=== PATIENT | male | born 1990 | race Caucasian/White ===

== ENCOUNTER 2017-08-28 09:26 | Emergency (ER) | payer OTHER, MEDICARE ==
[~2017-08-28] VITALS: Ht 170.2 cm; Wt 54.5 kg
[~2017-08-28 09:26] MED LIST: BENZ0.5T PO; CITA20 PO; DEPA500T3 PO; DIVA250ER PO; DOCU1CAP39 PO; GNP3TAB PO; LORA-392 PO; MULT1TAB46 PO; SERO400T3 PO
[2017-08-28 09:28] VITALS: BP 118/65; PULSE 62; RESP 14; TEMP 98.4; O2SAT 99
[2017-08-28] MEDS ORDERED: KETOROLAC TROMETHAMINE 60 MG/2 ML (IM) VIAL IM ONE (09:45)
--- NOTE | 2017-08-28 10:31 | RADRPT ---
EXAM DATE/TIME: 08/28/2017 09:49 [place] COMPARISON: No previous studies available for comparison. INDICATIONS : Left wrist pain, fell MEDICAL HISTORY : None. SURGICAL HISTORY : None. ENCOUNTER: Initial ACUITY: 2 days PAIN SCORE: 10 LOCATION: Left Wrist FINDINGS: On the frontal view, there is a focal vertical lucency seen at the distal radial cortex in the midpor tion of the distal radius. No other lucencies are seen on any of the other images to confirm a fractu re. The distal ulna appears intact. The radiocarpal joint is normally aligned. There some soft tissue swelling around the wrist. CONCLUSION: Single image showing a small vertical lucency at the distal radius. A subtle fracture cannot be exclu ded. A cleft have similar appearance. No other bony abnormality seen in any other view. There is soft tissue swelling at the wrist. Fidel Henson MD on August 28, 2017 at 10:27 Board Certified Radiologist. This report was verified electronically.
[2017-08-28] MEDS ORDERED: TRAM50TA PO (10:55)
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
[2017-08-28 11:33] VITALS: RESP 18
== END 2017-08-28 11:33 | disposition home or self-care (01) ==
LOC: NEPD 09:26
DX: S69.92XA Unspecified injury of left wrist, hand and finger(s), initial encounter (principal); V13.4XXA Pedal cycle driver injured in collision with car, pick-up truck or van in traffic accident, initial encounter; F17.210 Nicotine dependence, cigarettes, uncomplicated
CPT/HCPCS: 29125; 73110; 96372; 99283; J1885